=== PATIENT | female | born 1965 | race Caucasian/White ===

== ENCOUNTER 2021-06-16 13:01 | Emergency (ER) | payer BC ==
[2021-06-16 13:50] LABS: Protime INR 0.94
[2021-06-16 13:51] LABS: Absolute Lymphocytes (CBC) 2.2 K/uL (0.7-4.9); Basophils % 1.2 % (0-1.3); Hematocrit 37.2 % (36.0-45.0); Lymphocytes % 24.2 % (15.3-44.8); MPV 9.4 fL (7.6-11.3)
--- NOTE | 2021-06-16 13:59 | RAD REPORT ---
EXAM DESCRIPTION: RAD - Chest Single View - 06/16/2021 1:44 pm CLINICAL HISTORY: CHEST PAIN COMPARISON: No comparisons FINDINGS: Lines: None. Lungs: No evidence of edema or pneumonia. Pleural: No significant pleural effusions or pneumothorax. Cardiac: The heart size is within normal limits. Bones: No acute fractures. Other: IMPRESSION: No acute cardiopulmonary disease.
[2021-06-16 14:00] LABS: Urine Blood Negative (Negative); Urine Glucose Negative (Negative); Urine Protein Negative (Negative); Urine Specific Gravity >=1.030 (1.005-1.030); Urine pH 5.5 (5.0-7.0)
[2021-06-16 14:15] LABS: ALT/SGPT 46 U/L (12-78); AST/SGOT 25 U/L (15-37); Albumin 3.8 g/dL (3.4-5.0); Alkaline Phosphatase 104 U/L (45-117); BUN Blood Urea Nitrogen 16 mg/dL (7-18); Bicarbonate 26 mmol/L (21-32); Bilirubin Direct 0.1 mg/dL (0-0.2); Bilirubin Total 0.4 mg/dL (0.2-1.0); Glucose Level 87 mg/dL (74-106); Magnesium 2.2 mg/dL (1.8-2.4); NT PRO-BNP 102 pg/mL (<125); Potassium 3.9 mmol/L (3.5-5.1); Protein, Total 7.7 g/dL (6.4-8.2); Sodium Level 142 mmol/L (136-145); Troponin (Emerg Dept Use Only) < 0.02 ng/mL (0.0-0.045)
[2021-06-16 14:57] LABS: Urine Specific Gravity/Preg >1.030 (1.005-1.030)
--- NOTE | 2021-06-16 15:29 | EDPHYS ---
Physician Documentation [facility] Name: Shira Piper Age: 55 yrs Sex: Female : 1965 Arrival Date: 06/16/2021 Time: 13:04 Bed 17 Private MD: ED Physician Tree Harrison HPI: 06/16 15:24 This 55 yrs old Female presents to ER via Ambulatory with complaints of Chest pm1 Pain. 15:24 The patient or guardian reports chest pain that is located primarily in the mid-sternal pm1 area. Onset: 2 day(s) ago. The pain does not radiate. Associated signs and symptoms: Pertinent positives: headache, nausea, Pertinent negatives: abdominal pain, diaphoresis, dizziness, shortness of breath, vomiting. The chest pain is described as a pressure. Duration: The patient or guardian reports a single episode, that is still ongoing. Modifying factors: The symptoms are alleviated by nothing. the symptoms are aggravated by nothing. Severity of pain: in the emergency department the pain is unchanged. The patient has not experienced similar symptoms in the past. The patient has been recently seen by a physician: the patient's primary care provider, with similar presenting complaints, and was sent to the [facility] Emergency Department for further evaluation. 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 - Social history:: Smoking status: Patient denies any tobacco usage or history of. ROS: 15:24 Constitutional: Negative for fever, chills, and weight loss. pm1 15:24 Respiratory: Negative for shortness of breath, cough, wheezing, and pleuritic chest pain. 15:24 Back: Negative for injury and pain, MS/Extremity: Negative for injury and deformity, Skin: Negative for injury, rash, and discoloration. 15:24 Cardiovascular: Positive for chest pain, Negative for edema, palpitations. 15:24 Abdomen/GI: Positive for nausea, Negative for abdominal pain, vomiting, diarrhea. 15:24 Neuro: Positive for headache. 15:24 All other systems are negative. Exam: 15:24 Constitutional: This is a well developed, well nourished patient who is awake, alert, pm1 and in no acute distress. Head/Face: Normocephalic, atraumatic. 15:24 Skin: Warm, dry with normal turgor. Normal color with no rashes, no lesions, and no evidence of cellulitis. MS/ Extremity: Pulses equal, no cyanosis. Neurovascular intact. Full, normal range of motion. 15:24 Eyes: Exam is negative for acute changes, Extraocular movements: no acute changes, Sclera: no acute changes, icterus, is not appreciated. 15:24 ENT: Exam is negative for acute changes, Mouth: no acute changes, Lips: normal, moist, Oral mucosa: normal, pink and intact, moist. 15:24 Cardiovascular: Exam negative for acute changes, Rate: normal, Rhythm: regular, Pulses: no pulse deficits are appreciated, Heart sounds: normal, Edema: is not appreciated. 15:24 Respiratory: Exam negative for acute changes, respiratory distress, shortness of breath. 15:24 Abdomen/GI: Exam negative for acute changes, Inspection: abdomen appears normal, Palpation: abdomen is soft and non-tender, in all quadrants. 15:24 Neuro: Exam negative for acute changes, Orientation: is normal, Mentation: is normal, Motor: is normal, moves all fours. Vital Signs: 13:08 BP 132 / 85; Pulse 82; Resp 18; Temp 97.6; Pulse Ox 100% ; Weight 81.65 kg; Height 5 ch5 ft. 5 in. (165.10 cm); Pain 6/10; 13:26 BP 136 / 63; Pulse 76; Resp 24; Pulse Ox 99% on R/A; Pain 7/10; ld1 14:40 BP 122 / 69; Pulse 68; Resp 18; Pulse Ox 99% on R/A; ld1 16:00 BP 128 / 72; Pulse 74; Resp 18; Temp 97.8(O); Pulse Ox 100% on R/A; sl2 16:43 BP 132 / 78; Pulse 76; Resp 18; Temp 97.8; Pulse Ox 99% ; sl2 13:08 Body Mass Index 29.95 (81.65 kg, 165.10 cm) 5 MDM: 13:18 Patient medically screened. pm1 14:00 Differential diagnosis: abnormal EKG, acute myocardial infarction, acute pericarditis, cp pericarditis, pleurisy, pneumonia, pneumothorax, appendicitis. 15:27 Data reviewed: vital signs. Data interpreted: Pulse oximetry: on room air is 99 %. pm1 Interpretation: normal. Counseling: I had a detailed discussion with the patient and/or guardian regarding: the historical points, exam findings, and any diagnostic results supporting the discharge/admit diagnosis, lab results, radiology results, the need for outpatient follow up, a tape editor, a family practitioner, to return to the emergency department if symptoms worsen or persist or if there are any questions or concerns that arise at home. 15:50 ED course: Patient is now reporting right-sided flank pain radiating to right lower pm1 abdomen. Therefore will order CT scan prior to disposition. 06/16 13:17 Order name: Basic Metabolic Panel; Complete Time: 14:55 pm1 06/16 13:17 Order name: CBC with Diff; Complete Time: 14:04 pm1 06/16 13:17 Order name: LFT's; Complete Time: 14:55 pm1 06/16 13:17 Order name: Magnesium; Complete Time: 14:55 pm1 06/16 13:17 Order name: NT PRO-BNP; Complete Time: 14:55 pm1 06/16 13:17 Order name: PT-INR; Complete Time: 14:04 pm1 06/16 13:17 Order name: Troponin (emerg Dept Use Only); Complete Time: 14:55 pm1 06/16 13:17 Order name: XRAY Chest (1 view); Complete Time: 14:04 pm1 06/16 13:17 Order name: EKG; Complete Time: 13:18 pm1 06/16 13:17 Order name: Cardiac monitoring; Complete Time: 13:29 pm1 06/16 13:17 Order name: EKG - Nurse/Tech; Complete Time: 13:29 pm1 06/16 14:00 Order name: Urine Dipstick-Ancillary; Complete Time: 14:04 EDMS 06/16 14:17 Order name: Urine --Ancillary (enter results); Complete Time: 15:04 mt 06/16 15:50 Order name: CT Abd/Pelvis - IV Contrast Only; Complete Time: 17:23 pm1 06/16 17:25 Interpretation: Report reviewed. cp 06/16 13:17 Order name: IV Saline Lock; Complete Time: 13:29 pm1 06/16 13:17 Order name: Labs collected and sent; Complete Time: 13:31 pm1 06/16 13:17 Order name: O2 Per Protocol; Complete Time: 13:29 pm1 06/16 13:17 Order name: O2 Sat Monitoring; Complete Time: 13:29 pm1 Administered Medications: No medications were administered Disposition Summary: 06/16/21 17:35 Discharge Ordered Location: Home(06/16/21 17:35) cp Problem: new(06/16/21 17:35) cp Symptoms: have improved(06/16/21 17:35) cp Condition: Stable(06/16/21 17:35) cp Diagnosis - Chest pain, unspecified(06/16/21 17:35) cp - Abdominal pain, unspecified cp Followup: cp - With: Private Physician - When: 2 - 3 days - Reason: Recheck today's complaints Discharge Instructions: - Discharge Summary Sheet cp - Abdominal Pain, Adult cp - Nonspecific Chest Pain, Adult cp - Aspirin and Your Heart cp Forms: - Medication Reconciliation Form cp - Thank You Letter cp - Antibiotic Education cp - Prescription Opioid Use cp Prescriptions: - Ibuprofen 800 mg Oral Tablet - take 1 tablet by ORAL route every 8 hours As needed take with food; 30 tablet; cp Refills: 0, Product Selection Permitted - dicyclomine 20 mg Oral Tablet - take 1 tablet by ORAL route 4 times per day As needed; 30 tablet; Refills: 0, cp Product Selection Permitted Addendum: 06/19/2021 13:58 Co-signature as Attending Physician, Tree Harrison MD I agree with the assessment and r n plan of care. Attestation: The patient's history, exam findings, diagnostics, and a summary of any interventions or procedures was reviewed in detail with Ruddy BRADLEY. Signatures: Dispatcher [employer] EDTree Oglesby MD MD rn Page, Corey, PA PA cp Bob Valles, KNITTED CLOTH EXAMINER KNITTED CLOTH EXAMINER pm1 Braydon Bragg RN RN ch5 Corrections: (The following items were deleted from the chart) 06/16 13:14 13:10 Home Meds: [place] Spotted Fever; ch5 ch5 15:50 15:28 Home pm1 pm1 15:50 15:28 new pm1 pm1 15:50 15:28 have improved pm1 pm1 15:50 15:28 Stable pm1 pm1 15:50 15:28 Chest pain, unspecified pm1 pm1
--- NOTE | 2021-06-16 15:29 | ER ---
Nurse's Notes [facility] Name: Shira Piper Age: 55 yrs Sex: Female : 1965 Arrival Date: 06/16/2021 Time: 13:04 Bed 17 Private MD: Diagnosis: Chest pain, unspecified;Abdominal pain, unspecified Presentation: 06/16 13:08 Chief complaint: Patient states: Chest discomfort and DAVIS starting 2 days ago. Saw PCP ch5 today and was told to come to ED. Coronavirus screen: Vaccine status: Patient reports being unvaccinated. Ebola Screen: Patient negative for fever greater than or equal to 101.5 degrees Fahrenheit, and additional compatible Ebola Virus Disease symptoms Patient denies exposure to infectious person. Patient denies travel to an Ebola-affected area in the 21 days before illness onset. No symptoms or risks identified at this time. Initial Sepsis Screen: Does the patient meet any 2 criteria? No. Patient's initial sepsis screen is negative. Does the patient have a suspected source of infection? No. Patient's initial sepsis screen is negative. Risk Assessment: Do you want to hurt yourself or someone else? Patient reports no desire to harm self or others. Onset of symptoms was June 14, 2021. 13:08 Method Of Arrival: Ambulatory [facility] 13:08 Acuity: PAULO 2 5 Triage Assessment: 13:14 General: Appears in no apparent distress. Behavior is calm, cooperative. Pain: 5 Complains of pain in chest. 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 - Social history:: Smoking status: Patient denies any tobacco usage or history of. Screenin:26 Abuse screen: Denies threats or abuse. Denies injuries from another. Nutritional ld1 screening: No deficits noted. Tuberculosis screening: No symptoms or risk factors identified. Fall Risk None identified. Assessment: 13:26 General: Appears in no apparent distress. comfortable, Behavior is calm, cooperative, ld1 appropriate for age. Pain: Complains of pain in right low back and chest Pain radiates to anterior aspect of right shoulder Pain currently is 7 out of 10 on a pain scale. Quality of pain is described as pressure, Pain began 2-3 days ago. Is continuous. Neuro: Level of Consciousness is awake, alert, obeys commands, Oriented to person, place, time, situation. Cardiovascular: Reports chest pain, Capillary refill < 3 seconds Patient's skin is warm and dry. Rhythm is sinus rhythm. Respiratory: Airway is patent Respiratory effort is even, unlabored, Respiratory pattern is regular, symmetrical. GI: Abdomen is flat, non-distended. : No signs and/or symptoms were reported regarding the genitourinary system. EENT: No signs and/or symptoms were reported regarding the EENT system. Derm: No signs and/or symptoms reported regarding the dermatologic system. Musculoskeletal: Reports pain in chest. 14:40 Reassessment: Patient appears in no apparent distress at this time. No changes from ld1 previously documented assessment. Patient and/or family updated on plan of care and expected duration. Pain level reassessed. Patient is alert, oriented x 3, equal unlabored respirations, skin warm/dry/pink. 16:01 Reassessment: Patient ambulated to restroom with steady gait noted . sl2 Vital Signs: 13:08 BP 132 / 85; Pulse 82; Resp 18; Temp 97.6; Pulse Ox 100% ; Weight 81.65 kg; Height 5 ch5 ft. 5 in. (165.10 cm); Pain 6/10; 13:26 BP 136 / 63; Pulse 76; Resp 24; Pulse Ox 99% on R/A; Pain 7/10; ld1 14:40 BP 122 / 69; Pulse 68; Resp 18; Pulse Ox 99% on R/A; ld1 16:00 BP 128 / 72; Pulse 74; Resp 18; Temp 97.8(O); Pulse Ox 100% on R/A; sl2 16:43 BP 132 / 78; Pulse 76; Resp 18; Temp 97.8; Pulse Ox 99% ; sl2 13:08 Body Mass Index 29.95 (81.65 kg, 165.10 cm) ch5 ED Course: 13:04 Patient arrived in ED. ds1 13:10 Triage completed. ch5 13:14 Arm band placed on right wrist. ch5 13:17 Marinas, Bob, CABLE TESTERS HELPER is PHCP. pm1 13:17 Tree Harrison MD is Attending Physician. pm1 13:25 Liestte Sandra, RN is Primary Nurse. ld1 13:26 Patient has correct armband on for positive identification. Placed in gown. Bed in low ld1 position. Call light in reach. Side rails up X2. classroom monitor on. Pulse ox on. NIBP on. Door closed. Noise minimized. Warm blanket given. 13:26 No provider procedures requiring assistance completed. Inserted saline lock: 20 gauge ld1 in right antecubital area, using aseptic technique. Blood collected. Patient maintains SpO2 saturation greater than 95% on room air. 13:44 XRAY Chest (1 view) In Process Unspecified. EDMS 13:58 Latisha Rosales, SALOME is Primary Nurse. 2 14:00 Urine Dipstick-Ancillary Sent. 5 14:00 Basic Metabolic Panel Sent. 5 14:00 LFT's Sent. 5 14:01 Magnesium Sent. 5 14:01 Troponin (emerg Dept Use Only) Sent. [facility] 14:01 NT PRO-BNP Sent. 5 14:01 Initial lab(s) drawn, by ED staff, sent to lab. mh5 16:[address] via wheelchair. sl2 16:54 CT Abd/Pelvis - IV Contrast Only In Process Unspecified. EDSD 17:14 PHCP role handed off by Bob Valles, RUBIN 17:14 Ruddy Ren PA is PHCP. cp 18:09 intact, bleeding controlled. sl2 Administered Medications: No medications were administered Outcome: 15:28 Discharge ordered by . pm1 17:35 Discharge ordered by MD. cp 18:09 Discharged to home ambulatory. sl2 18:09 Condition: good 18:09 Condition: stable 18:09 Discharge instructions given to Instructed on discharge instructions, follow up and referral plans. medication usage, Demonstrated understanding of instructions, follow-up care, medications, Prescriptions given X 2. 18:10 Patient left the ED. sl2 Signatures: Dispatcher [employer] [facility] Cheyanne Lloyd ds1 Ruddy Ren PA PA cp Marinas, Patrick, NP CABLE TESTERS HELPER pm1 Suzie Castillo 5 Lisette Sandra RN RN 1 Braydon Bragg RN RN 5 Landell, Latisha, RN RN sl2 Corrections: (The following items were deleted from the chart) 13:14 13:10 [place] Meds: [place] Spotted Fever; ch5 ch5
--- NOTE | 2021-06-16 17:15 | RAD REPORT ---
EXAM DESCRIPTION: CTAbdomen Pelvis W Contrast - 06/16/2021 4:54 pm CLINICAL HISTORY: FLANK PAIN COMPARISON: No comparisons TECHNIQUE: CT of the abdomen and pelvis was performed. All CT scans are performed using dose optimization technique as appropriate and may include automated exposure control or mA/KV adjustment according to patient size. FINDINGS: Lower chest: No acute abnormality. Liver: No acute abnormality or suspicious lesions. Biliary: Cholecystectomy. Stomach: No significant focal abnormality. Duodenum: No significant focal abnormality. Pancreas: No significant abnormality. Spleen: No significant abnormality. Adrenal: No suspicious lesions. Kidney/ureter: No hydronephrosis. No renal calculi. Retroperitoneum: No retroperitoneal adenopathy. Vascular: No aneurysm. Bowel: Moderate stool in the colon. No bowel obstruction. Normal appendix.. Peritoneum: No ascites or free air. Bladder: Grossly unremarkable. Reproductive: No adnexal masses. Bones: No acute fracture. Other: n/a IMPRESSION: No acute intra-abdominal or pelvic finding. Normal appendix.
[2021-06-16 18:25] VITALS: TEMP 97.8
[2021-06-16 18:27] VITALS: BP 132/78; O2SAT 99
== END 2021-06-16 18:10 | disposition home or self-care (01) ==
LOC: ER 13:01
DX: R07.9 Chest pain, unspecified (principal); R10.31 Right lower quadrant pain; Z88.3 Allergy status to other anti-infective agents
CPT/HCPCS: 93005; 85025; 80048; 36415; 83735; 81025; 85610; 80076; 81003; 84484; 83880; 74177; 71045; 99285; Q9967